=== PATIENT | female | born 1975 ===

== ENCOUNTER 2023-11-29 13:41 | Outpatient (OUT) | payer BC, SELFPAY | END 2023-11-29 13:42 | disposition home or self-care (01) | LOC: PST 13:41 | PROVIDERS: Visit Provider Surgery | DX: Z01.818 Encounter for other preprocedural examination (principal); Z12.11 Encounter for screening for malignant neoplasm of colon ==

== ENCOUNTER 2023-12-07 06:27 | Day surgery (SDC) | payer BC, SELFPAY ==
--- NOTE | 2023-12-07 | OP_ITS ---
OPERATION DATE: 12/07/2023 PREOPERATIVE DIAGNOSIS: Colorectal screening. POSTOPERATIVE DIAGNOSIS: Normal colonoscopy to cecum. PROCEDURE: Colonoscopy to cecum. SURGEON: Cal Cabrera M.D. ANESTHESIA: Monitored anesthesia care. ESTIMATED BLOOD LOSS: Zero. INDICATIONS AND CONSENT: Patient is a 48-year-old female presents for colorectal screening. Indications, risks, benefits, alternatives of proceeding with colonoscopy were explained extensively to the patient, including the risks of bleeding, colon perforation or anesthetic complications. All of her questions were answered. Informed consent was obtained. PROCEDURE: Patient brought to the operating room, placed in the left lateral decubitus position. Monitored anesthesia care was provided. Rectal exam was performed which showed no masses or blood. The scope was inserted into the anal canal. Under direct visualization was advanced. It was advanced to the cecum where cecal markings were clearly identified. There was noted to be a good prep. Upon withdrawal of the scope, mucosal surfaces were carefully examined. There were no mass lesions or polyps. No inflammatory changes or ulcerations. No significant diverticulosis. The scope was retroflexed in the anal canal. There was noted to be some anal skin tags and hypertrophic anal papillae. No significant hemorrhoidal disease. Scope was then withdrawn. Patient tolerated procedure well, was sent to recovery room in good condition.f/u screening colonoscopy should be in 10 years. CC: Buzz Parsons M.D. ALEJA
[2023-12-07 06:54] VITALS: BP 134/84; PULSE 70; TEMP 36.1; O2SAT 96; BMI 51.9
[2023-12-07 07:02] LABS: HCG Qualitative NEGATIVE (NEGATIVE)
[2023-12-07 07:07] LABS: Glucometer 175 mg/dL (74-106)
[2023-12-07] MEDS: LACTATED RINGER'S SOLUTION 1,000 ML 50 ML IV (07:16)
[2023-12-07 08:09] VITALS: BP 126/64; PULSE 66; TEMP 36.5; O2SAT 95
[2023-12-07 08:24] VITALS: BP 121/72; PULSE 68; O2SAT 95
[2023-12-07 08:39] VITALS: BP 153/94; PULSE 64; O2SAT 95
== END 2023-12-07 08:39 | disposition home or self-care (01) ==
PROVIDERS: Visit Provider Surgery
PROC: (CPT 812; principal; 2023-12-07 07:50)
DX: Z12.11 Encounter for screening for malignant neoplasm of colon (principal); K64.4 Residual hemorrhoidal skin tags; I10 Essential (primary) hypertension; K21.9 Gastro-esophageal reflux disease without esophagitis; M17.0 Bilateral primary osteoarthritis of knee; E78.2 Mixed hyperlipidemia; F41.1 Generalized anxiety disorder; M54.16 Radiculopathy, lumbar region; E66.01 Morbid (severe) obesity due to excess calories; Z68.43 Body mass index [BMI] 50.0-59.9, adult; E11.9 Type 2 diabetes mellitus without complications; E28.2 Polycystic ovarian syndrome; Z98.84 Bariatric surgery status; Z79.85 Long-term (current) use of injectable non-insulin antidiabetic drugs; Z79.84 Long term (current) use of oral hypoglycemic drugs; Z79.899 Other long term (current) drug therapy
CPT/HCPCS: 45378; 36415; 82948; 84703; J2704